=== PATIENT | male | born 1945 | race Caucasian/White ===

== ENCOUNTER 2017-05-06 16:07 | Emergency (ER) | payer MEDICARE, OTHER ==
[~2017-05-06] VITALS: Ht 170.2 cm; Wt 87.5 kg
[~2017-05-06 16:07] MED LIST changes: -Doxycycline Hy100 MG PO
[2017-05-06 17:56] LABS: BASOPHILS ABSOLUTE AUTO 0.04 K/mm3 (0.00-0.23); BASOPHILS PERCENT AUTO 1 % (0-2); EOSINOPHILS ABSOLUTE AUTO 0.04 K/mm3 (0.00-0.68); EOSINOPHILS PERCENT AUTO 1 % (0-6); Hematocrit 38.3 % (37.0-53.0); Hemoglobin 12.5 g/dL (13.5-17.5); IMMATURE GRAN ABSOLUTE AUTO 0.01 K/mm3 (0.00-0.10); IMMATURE GRAN PERCENT AUTO 0 % (0-1); LYMPHOCYTES ABSOLUTE AUTO 0.66 K/mm3 (0.84-5.20); LYMPHOCYTES PERCENT AUTO 11 % (21-46); MONOCYTES PERCENT AUTO 11 % (4-13); Mean Corpuscular HGB 31.2 pg (26.0-34.0); Mean Corpuscular HGB Conc 32.6 g/dL (31.5-36.5); Mean Corpuscular Volume 96 fL (80-100); Mean Platelet Volume 9.7 fL (9.1-12.4); NEUTROPHILS ABSOLUTE AUTO 4.78 K/mm3 (1.96-9.15); NEUTROPHILS PERCENT AUTO 77 % (41-73); Platelet Count 165 K/mm3 (150-400); RDW Coefficient Variation 12.4 % (11.7-14.2); RDW Standard Deviation 43.8 fL (35.1-46.3); Red Blood Cell Count 4.01 M/mm3 (4.30-5.90); White Blood Cell Count 6.23 K/mm3 (4.00-11.30)
[2017-05-06 18:11] LABS: Albumin, Blood 3.6 g/dL (3.4-5.0); Bilirubin, Total 1.2 mg/dL (0.1-1.0); Bun/Creatinine Ratio 19.7 (12.0-20.0); Calcium, Blood 8.5 mg/dL (8.5-10.1); Creatinine, Blood 1.42 mg/dL (0.60-1.20); Globulin, Blood 3.6 g/dL (2.2-4.0); Potassium, Blood 4.2 mmol/L (3.5-5.5); Total Protein, Blood 7.2 g/dL (6.4-8.2)
[2017-05-06] MEDS ORDERED: Doxycycline Hy100 MG PO (18:34)
== END 2017-05-06 19:12 | disposition home or self-care (01) ==
LOC: ER 16:07
PROVIDERS: Emergency Medicine
DX: J18.9 Pneumonia, unspecified organism (principal); M25.562 Pain in left knee; G72.89 Other specified myopathies; J02.9 Acute pharyngitis, unspecified; Z79.899 Other long term (current) drug therapy; Z79.82 Long term (current) use of aspirin; Z87.891 Personal history of nicotine dependence
CPT/HCPCS: 80053; 85025; 85651; 87070; 93005; 93010; 96374; 99283; J1885; J7030

== ENCOUNTER → 2017-05-06 | Outpatient (CLI) | payer MEDICARE, OTHER ==
[~2017-05-06] MED LIST: ASPI81CH PO; ATOR40TA PO; Biotin1 MG PO; CHOL10002 PO; Doxycycline Hy100 MG PO; FAMO20 PO; FISH1000 PO; GABA300 PO; LISI20 PO; MULTIVITAMIN PO; NADO40; NADO40 PO; OXYC5 PO; TRAM50 PO; TRIHYD253A PO
[2017-05-06 16:11] LABS: BASOPHILS ABSOLUTE AUTO 0.05 K/mm3 (0.00-0.23); BASOPHILS PERCENT AUTO 1 % (0-2); EOSINOPHILS ABSOLUTE AUTO 0.07 K/mm3 (0.00-0.68); EOSINOPHILS PERCENT AUTO 1 % (0-6); Hematocrit 37.4 % (37.0-53.0); IMMATURE GRAN ABSOLUTE AUTO 0.01 K/mm3 (0.00-0.10); IMMATURE GRAN PERCENT AUTO 0 % (0-1); LYMPHOCYTES ABSOLUTE AUTO 0.69 K/mm3 (0.84-5.20); LYMPHOCYTES PERCENT AUTO 11 % (21-46); MONOCYTES ABSOLUTE AUTO 0.52 K/mm3 (0.16-1.47); MONOCYTES PERCENT AUTO 9 % (4-13); Mean Corpuscular HGB 30.5 pg (26.0-34.0); Mean Corpuscular HGB Conc 32.1 g/dL (31.5-36.5); Mean Corpuscular Volume 95 fL (80-100); Mean Platelet Volume 10.4 fL (9.1-12.4); NEUTROPHILS ABSOLUTE AUTO 4.79 K/mm3 (1.96-9.15); NEUTROPHILS PERCENT AUTO 78 % (41-73); Platelet Count 174 K/mm3 (150-400); RDW Coefficient Variation 12.4 % (11.7-14.2); RDW Standard Deviation 43.8 fL (35.1-46.3); Red Blood Cell Count 3.93 M/mm3 (4.30-5.90); White Blood Cell Count 6.13 K/mm3 (4.00-11.30)
[2017-05-06 16:41] LABS: Albumin, Blood 3.5 g/dL (3.4-5.0); Bilirubin, Total 1.2 mg/dL (0.1-1.0); Bun/Creatinine Ratio 19.2 (12.0-20.0); Calcium, Blood 8.4 mg/dL (8.5-10.1); Creatinine, Blood 1.46 mg/dL (0.60-1.20); Globulin, Blood 3.4 g/dL (2.2-4.0); Potassium, Blood 4.1 mmol/L (3.5-5.5); Total Protein, Blood 6.9 g/dL (6.4-8.2)
== END ==
LOC: LAB SHORT 15:32
PROVIDERS: Family Medicine
DX: R05 Cough (principal); R53.83 Other fatigue
CPT/HCPCS: 80053; 85025; 85651; 87070

== ENCOUNTER 2018-04-22 09:55 | Day surgery (SDC) | payer MEDICARE, OTHER ==
[~2018-04-22] VITALS: Ht 170.2 cm; Wt 89.2 kg
[~2018-04-22 09:55] MED LIST changes: +Aspirin EC81 MG PO; +CLARITIN10 MG PO; +Doxycycline Hy100 MG PO; +Dyazide 37.5-21 EACH PO; +FISH OIL 1,2001 EAC1 PO; +GABA400; +Mobic15 MG PO; +Multiple Vitam1 EAC1 PO; +Norco 10-325 T1 EACH PO; +TRIA15CR3; +Voltaren100 GM; +ZESTRIL40 MG PO
== END 2018-04-22 12:06 | disposition home or self-care (01) ==
LOC: ORSCSDS 09:55
PROVIDERS: Ophthalmology
PROC: 08RK3JZ Replacement of Left Lens with Synthetic Substitute, Percutaneous Approach (ICD-10-PCS; principal; 2018-04-22 11:30)
DX: H25.12 Age-related nuclear cataract, left eye (principal); I10 Essential (primary) hypertension; E11.9 Type 2 diabetes mellitus without complications; K21.9 Gastro-esophageal reflux disease without esophagitis; Z79.899 Other long term (current) drug therapy; Z79.82 Long term (current) use of aspirin
CPT/HCPCS: 82947; J2001; J2250; J3010; J7120; V2632

== ENCOUNTER 2018-05-06 20:26 | Emergency (ER) | payer MEDICARE, OTHER ==
[~2018-05-06] VITALS: Ht 170.2 cm; Wt 88.9 kg
[2018-05-06] MEDS ORDERED: HYDCOR2.5C PR (21:39)
[2018-05-06] MEDS ORDERED: PRAHYD1AE TOP (21:39)
== END 2018-05-06 22:23 | disposition home or self-care (01) ==
LOC: ER 20:26
DX: K64.4 Residual hemorrhoidal skin tags (principal); Z79.899 Other long term (current) drug therapy; Z79.82 Long term (current) use of aspirin; Z87.891 Personal history of nicotine dependence
CPT/HCPCS: 99283

== ENCOUNTER 2019-01-21 07:06 | Day surgery (SDC) | payer MEDICARE, OTHER ==
[~2019-01-21] VITALS: Ht 167.6 cm; Wt 88.9 kg
[~2019-01-21 07:06] MED LIST changes: +HYDCOR2.5C PR; +PRAHYD1AE TOP
[2019-02-14] MEDS ORDERED: NADO40 PO (12:34)
[2019-02-14] MEDS ORDERED: ZESTRIL40 M1 PO (12:34)
[2019-02-14] MEDS ORDERED: GABA400 PO (12:35)
[2019-02-14] MEDS ORDERED: Norco 10-325 T1 EACH PO (12:35)
[2019-02-14] MEDS ORDERED: Mobic15 MG PO (12:35)
[2019-02-14] MEDS ORDERED: ASCO500 PO (12:36)
[2019-02-14] MEDS ORDERED: VITAMIN D325 MCG PO (12:36)
[2019-02-14] MEDS ORDERED: MULTIPLE VITAM1 EACH PO (12:37)
[2019-02-14] MEDS ORDERED: FISH OIL EC 1,1 EAC1 PO (12:38)
[2019-02-14] MEDS ORDERED: TRIA15CR3 (12:38)
[2019-02-14] MEDS ORDERED: Loratadine10 MG PO (12:38)
[2019-02-14] MEDS ORDERED: Dyazide 37.5-21 EACH PO (12:39)
[2019-02-14] MEDS ORDERED: PROCTOSOL-HC30 GM EXT (12:39)
[2019-02-14] MEDS ORDERED: PRAV20 PO (12:40)
== END 2019-01-21 10:55 | disposition home or self-care (01) ==
LOC: ORSCSDS 07:06
PROVIDERS: Orthopaedic Surgery
PROC: 0SBC4ZZ Excision of Right Knee Joint, Percutaneous Endoscopic Approach (ICD-10-PCS; principal; 2019-01-21 08:30)
PROC: 0S5C4ZZ Destruction of Right Knee Joint, Percutaneous Endoscopic Approach (ICD-10-PCS; principal; 2019-01-21 08:30)
DX: M23.221 Derangement of posterior horn of medial meniscus due to old tear or injury, right knee (principal); M93.961 Osteochondropathy, unspecified, right lower leg; I10 Essential (primary) hypertension; E78.5 Hyperlipidemia, unspecified; E11.42 Type 2 diabetes mellitus with diabetic polyneuropathy; Z79.899 Other long term (current) drug therapy
CPT/HCPCS: 82947; C1713; J0171; J0461; J0690; J1100; J2250; J2405; J2704; J3010; J7120

== ENCOUNTER 2019-02-18 08:33 | Day surgery (SDC) | payer MEDICARE, OTHER ==
[~2019-02-18] VITALS: Ht 170.2 cm; Wt 84.0 kg
[~2019-02-18 08:33] MED LIST changes: +ASCO500 PO; +FISH OIL EC 1,1 EAC1 PO; +GABA400 PO; +Loratadine10 MG PO; +MULTIPLE VITAM1 EACH PO; +PRAV20 PO; +PROCTOSOL-HC30 GM EXT; +VITAMIN D325 MCG PO; +ZESTRIL40 M1 PO
== END 2019-02-18 10:30 | disposition home or self-care (01) ==
LOC: ORSCSDS 08:33
PROVIDERS: Surgery
PROC: 0DBL8ZX Excision of Transverse Colon, Via Natural or Artificial Opening Endoscopic, Diagnostic (ICD-10-PCS; principal; 2019-02-18 09:45)
DX: Z12.11 Encounter for screening for malignant neoplasm of colon (principal); Z86.010 Personal history of colon polyps; D12.3 Benign neoplasm of transverse colon; E11.22 Type 2 diabetes mellitus with diabetic chronic kidney disease; K21.9 Gastro-esophageal reflux disease without esophagitis; K57.30 Diverticulosis of large intestine without perforation or abscess without bleeding; I12.9 Hypertensive chronic kidney disease with stage 1 through stage 4 chronic kidney disease, or unspecified chronic kidney disease; N18.9 Chronic kidney disease, unspecified; E78.5 Hyperlipidemia, unspecified; F41.9 Anxiety disorder, unspecified; Z79.899 Other long term (current) drug therapy
CPT/HCPCS: 82947; 88305; J2704; J7120

== ENCOUNTER → 2019-05-29 | Outpatient (CLI) | payer MEDICARE, OTHER | END | disposition home or self-care (01) | LOC: LAB SHORT 14:35 → LAB EV 14:35 | DX: L03.031 Cellulitis of right toe (principal) | CPT/HCPCS: 87070; 87077; 87186; 87205 ==

== ENCOUNTER 2019-10-04 05:55 | Day surgery (SDC) | payer MEDICARE, OTHER ==
[~2019-10-04] VITALS: Ht 167.6 cm; Wt 94.2 kg
[~2019-10-04 05:55] MED LIST changes: +Pravachol40 MG PO
--- NOTE | 2019-10-04 07:02 | NUR ---
History, Chart, Medications and Allergies reviewed before start of procedure. Lungs clear T/O to Auscultation. Pre-Op teaching done. Pt verbalizes understanding.
--- NOTE | 2019-10-04 14:17 | NUR ---
THERAPY HERE TO WORK WITH PT.
--- NOTE | 2019-10-04 17:11 | NUR ---
SHIFT SUMMARY PT EATING AND DRINKING, VOIDING. PT HAD PROCEDURE TODAY. PT BEEN ASSISTED WITH ADL'S PRN. PT USING CALL LIGHT APPR. PT WORKED WITH THERAPY AND WALKED IN HALLWAY WITH ENTRY LEVEL STAFF ACCOUNTANT THIS AFTERNOON. PT BEEN UP TO CHAIR TODAY.
[2019-10-05 04:19] LABS: BASOPHILS ABSOLUTE AUTO 0.03 K/mm3 (0.00-0.23); BASOPHILS PERCENT AUTO 0 % (0-2); EOSINOPHILS PERCENT AUTO 0 % (0-6); Hematocrit 35.6 % (37.0-53.0); Hemoglobin 11.6 g/dL (13.5-17.5); IMMATURE GRAN ABSOLUTE AUTO 0.05 K/mm3 (0.00-0.10); IMMATURE GRAN PERCENT AUTO 0 % (0-1); LYMPHOCYTES ABSOLUTE AUTO 0.95 K/mm3 (0.84-5.20); LYMPHOCYTES PERCENT AUTO 7 % (21-46); MONOCYTES PERCENT AUTO 5 % (4-13); Mean Corpuscular HGB 32.5 pg (26.0-34.0); Mean Corpuscular HGB Conc 32.6 g/dL (31.5-36.5); Mean Corpuscular Volume 100 fL (80-100); Mean Platelet Volume 10.2 fL (9.1-12.4); NEUTROPHILS ABSOLUTE AUTO 12.26 K/mm3 (1.96-9.15); NEUTROPHILS PERCENT AUTO 88 % (41-73); Platelet Count 241 K/mm3 (150-400); RDW Coefficient Variation 12.1 % (11.7-14.2); RDW Standard Deviation 45.1 fL (35.1-46.3); Red Blood Cell Count 3.57 M/mm3 (4.30-5.90); White Blood Cell Count 13.99 K/mm3 (4.00-11.30)
[2019-10-05 04:39] LABS: Bun/Creatinine Ratio 24.8 (12.0-20.0); Calcium, Blood 8.2 mg/dL (8.5-10.1); Creatinine, Blood 1.45 mg/dL (0.60-1.20)
--- NOTE | 2019-10-05 05:05 | NUR ---
SHIFT SUMMARY PT A/O X4. SBA TO BATHROOM. PT TOLERATING PO INTAKE AND VOIDING. PT AMBULATED MULT TIMES DURING SHIFT. PT REPORTS PAIN IS MANAGED WELL. SEE EMAR. POLAR PACK IN PLACE DURING THE SHIFT. NO ACUTE CHANGES.
[2019-10-05] MEDS ORDERED: ASPI81CH PO (09:32)
[2019-10-05] MEDS ORDERED: Percocet 5-3251 EACH PO (09:33)
--- NOTE | 2019-10-05 10:10 | NUR ---
DISCHARGE CLEARED THERAPY, PAIN TOLERABLE, EATING, DRINKING, & VOIDING WELL. SCRIPTS, POLAR PACK, & DRSGS GIVEN. ESCORTED OUT VIA W/C.
== END 2019-10-05 10:18 | disposition home or self-care (01) ==
LOC: ORSCMMR 05:55 → ORD 07:30 → ORSCMMR 07:30 → ORD 08:15 → SURS 11:04 → ORSCMMR 11:04 → SURS 10-05 10:18
PROVIDERS: Orthopaedic Surgery
PROC: 0SRC0JA Replacement of Right Knee Joint with Synthetic Substitute, Uncemented, Open Approach (ICD-10-PCS; principal; 2019-10-04 07:30)
PROC: 8E0YXBZ Computer Assisted Procedure of Lower Extremity (ICD-10-PCS; principal; 2019-10-04 07:30)
DX: M17.11 Unilateral primary osteoarthritis, right knee (principal); I10 Essential (primary) hypertension; E78.5 Hyperlipidemia, unspecified; E11.9 Type 2 diabetes mellitus without complications; Z87.891 Personal history of nicotine dependence; K21.9 Gastro-esophageal reflux disease without esophagitis; N18.9 Chronic kidney disease, unspecified; Z79.899 Other long term (current) drug therapy; E66.9 Obesity, unspecified; Z68.33 Body mass index [BMI] 33.0-33.9, adult
CPT/HCPCS: 36415; 73560-RT; 80048; 82947; 85025; 88300; 97110; 97116; 97162; C1776; J0171; J0360; J0690; J0735; J1100; J1885; J2250; J2370; J2405; J2704; J2795; J3010; J7120

== ENCOUNTER → 2019-10-12 | Outpatient (CLI) | payer MEDICARE, OTHER ==
[~2019-10-12] MED LIST changes: +Percocet 5-3251 EACH PO
[2019-10-12 15:51] LABS: BASOPHILS ABSOLUTE AUTO 0.07 K/mm3 (0.00-0.23); BASOPHILS PERCENT AUTO 1 % (0-2); EOSINOPHILS PERCENT AUTO 5 % (0-6); Hematocrit 29.3 % (37.0-53.0); Hemoglobin 9.7 g/dL (13.5-17.5); IMMATURE GRAN ABSOLUTE AUTO 0.14 K/mm3 (0.00-0.10); IMMATURE GRAN PERCENT AUTO 1 % (0-1); LYMPHOCYTES ABSOLUTE AUTO 1.73 K/mm3 (0.84-5.20); LYMPHOCYTES PERCENT AUTO 16 % (21-46); MONOCYTES ABSOLUTE AUTO 0.84 K/mm3 (0.16-1.47); MONOCYTES PERCENT AUTO 8 % (4-13); Mean Corpuscular HGB 33.1 pg (26.0-34.0); Mean Corpuscular HGB Conc 33.1 g/dL (31.5-36.5); Mean Corpuscular Volume 100 fL (80-100); Mean Platelet Volume 9.2 fL (9.1-12.4); NEUTROPHILS ABSOLUTE AUTO 7.77 K/mm3 (1.96-9.15); NEUTROPHILS PERCENT AUTO 70 % (41-73); Platelet Count 339 K/mm3 (150-400); RDW Coefficient Variation 12.7 % (11.7-14.2); RDW Standard Deviation 45.7 fL (35.1-46.3); Red Blood Cell Count 2.93 M/mm3 (4.30-5.90); White Blood Cell Count 11.05 K/mm3 (4.00-11.30)
[2019-10-12 16:03] LABS: Alanine Aminotransfer (ALT/SGP 35 U/L (12-78); Albumin, Blood 3.1 g/dL (3.4-5.0); Albumin/Globulin Ratio 0.8 (0.8-1.8); Alk Phos 122 U/L (40-126); Anion Gap 7 mmol/L (6-16); Aspartate Aminotrans (AST/SGOT 25 U/L (12-37); Bilirubin, Total 0.7 mg/dL (0.1-1.0); Blood Urea Nitrogen 37 mg/dL (8-24); Bun/Creatinine Ratio 35.2 (12.0-20.0); CO2, Blood 30 mmol/L (21-32); Calcium, Blood 8.7 mg/dL (8.5-10.1); Chloride, Blood 105 mmol/L (98-108); Creatinine, Blood 1.05 mg/dL (0.60-1.20); Globulin, Blood 3.8 g/dL (2.2-4.0); Glomerular Filtration Rate >60 (60-); Glucose, Blood 105 mg/dL (70-99); Potassium, Blood 3.7 mmol/L (3.5-5.5); Sodium, Blood 142 mmol/L (136-145); Total Protein, Blood 6.9 g/dL (6.4-8.2)
== END | disposition home or self-care (01) ==
LOC: LAB SHORT 15:48 → LAB EV 15:48
PROVIDERS: Physician Assistant Medical
DX: K92.1 Melena (principal)
CPT/HCPCS: 80053; 85025

== ENCOUNTER 2019-12-03 23:04 | Emergency (ER) | payer MEDICARE, OTHER ==
[~2019-12-03] VITALS: Ht 167.6 cm; Wt 88.0 kg
[~2019-12-03 23:04] MED LIST changes: +DYAZIDE 37.5-21 EACH PO; +OMEP20ER PO
== END 2019-12-04 00:10 | disposition home or self-care (01) ==
LOC: ER 23:04
DX: S51.811A Laceration without foreign body of right forearm, initial encounter (principal); Z88.8 Allergy status to other drugs, medicaments and biological substances; Z79.899 Other long term (current) drug therapy; Z23 Encounter for immunization; W26.8XXA Contact with other sharp object(s), not elsewhere classified, initial encounter
CPT/HCPCS: 90471; 90714; 99282-25

== ENCOUNTER 2022-04-08 06:32 | Day surgery (SDC) | payer MEDICARE ==
[~2022-04-08] VITALS: Ht 170.2 cm; Wt 99.9 kg
[~2022-04-08 06:32] MED LIST changes: +FURO40 PO; +IRBE150 PO
--- NOTE | 2022-04-08 07:34 | NUR ---
History, Chart, Medications and Allergies reviewed before start of procedure. Patient confirms NPO status and agrees with scheduled surgery. Pre-Op teaching done. Pt verbalizes understanding.
--- NOTE | 2022-04-08 18:49 | NUR ---
SHIFT SUMMARY PT A&OX4, VSS/RA, ARIELLE PO, PAIN TREATED WITH OXY, TYLENOL AND TORADOL, PT FINALLY REP PAIN 05/16. 2 PP MAX ASSIST STAND PIVOT TRANSFER BED/CHAIR. BLADDER SCAN [id number], AWAITING POSTOP VOID. S/P L TKA, AQUACEL/SEFERINO WRAP CDI, POLAR SANIYA ON/SCDS/TEDS ON. REPORT PROVIDED TO TIO ALVARADO.
[2022-04-09 04:19] LABS: BASOPHILS ABSOLUTE AUTO 0.01 K/mm3 (0.00-0.23); BASOPHILS PERCENT AUTO 0 % (0-2); EOSINOPHILS ABSOLUTE AUTO 0.01 K/mm3 (0.00-0.68); EOSINOPHILS PERCENT AUTO 0 % (0-6); Hematocrit 28.2 % (37.0-53.0); Hemoglobin 9.5 g/dL (13.5-17.5); IMMATURE GRAN ABSOLUTE AUTO 0.06 K/mm3 (0.00-0.10); IMMATURE GRAN PERCENT AUTO 0 % (0-1); LYMPHOCYTES ABSOLUTE AUTO 1.01 K/mm3 (0.84-5.20); LYMPHOCYTES PERCENT AUTO 7 % (21-46); MONOCYTES ABSOLUTE AUTO 0.85 K/mm3 (0.16-1.47); MONOCYTES PERCENT AUTO 6 % (4-13); Mean Corpuscular HGB 32.4 pg (26.0-34.0); Mean Corpuscular HGB Conc 33.7 g/dL (31.5-36.5); Mean Corpuscular Volume 96 fL (80-100); Mean Platelet Volume 10.1 fL (9.1-12.4); NEUTROPHILS ABSOLUTE AUTO 12.04 K/mm3 (1.96-9.15); NEUTROPHILS PERCENT AUTO 86 % (41-73); Platelet Count 245 K/mm3 (150-400); RDW Coefficient Variation 12.5 % (11.7-14.2); RDW Standard Deviation 43.7 fL (35.1-46.3); Red Blood Cell Count 2.93 M/mm3 (4.30-5.90); White Blood Cell Count 13.98 K/mm3 (4.00-11.30)
--- NOTE | 2022-04-09 04:20 | NUR ---
SUMMARY POD1 L TKA. AQUACEL W/ SEFERINO WRAP IN PLACE, C/D/I. POLAR PACK TO KNEE. SCD'S AND LYN HOSE IN PLACE. PATIENT HAS VOIDED X1 ABOUT 250ML IN URINAL. 2 ASSIST TO SIT AT EOB. TREMORS IN ARMS AND UPPER BODY WHILE MOVING. PATIENT STATES, "THIS HAS BEEN GOING ON FOR A YEAR NOW". IV SALINE LOCKED, PATIENT TOLERATES PO INTAKE, DENIES N/V. PATIENT REPORTS SOME N/T IN FEET, THIS IS BASELINE PER PATIENT. VSS, CALLS APPROPRIATELY.
[2022-04-09 04:47] LABS: Bun/Creatinine Ratio 22.9 (12.0-20.0); Calcium, Blood 8.3 mg/dL (8.5-10.1); Creatinine, Blood 2.01 mg/dL (0.60-1.20); Potassium, Blood 4.8 mmol/L (3.5-5.5)
--- NOTE | 2022-04-09 18:12 | NUR ---
SHIFT SUMMARY PT POD #1 FOR L TOTAL KNEE. PT IS A 2 PERSON MAX ASSIST AND DID NOT CLEAR PHYSICAL THERAPY IN ORDER TO GO HOME TODAY. FAMILY AND 'S CAREGIVER HAVE BEEN MADE AWARE. PT TO WORK WITH PHYSICAL THERAPY AGAIN TOMORROW. TREATED FOR PAIN PER EMR. VSS.
--- NOTE | 2022-04-10 04:30 | NUR ---
SUMMARY POD 2 L TKA. A&OX4. PATIENT IS A 2 ASSIST TO TRANSFER, GB, FWW. PATIENT HAS MODERATE TREMORING IN LEGS AND HANDS. WHILE STANDING AT EDGE OF BED WITH 2 STAFF MEMBERS, PATIENT HAD HIS L LEG GIVE WAY AND HE SAT ABRUPTLY ON THE BED. PATIENT DENIES N/T T/O. IV ON R FORARM INFILITRATED THIS RN REMOVED IT BEFORE BEING ABLE TO GIVE SCHEDULED TORADOL. PATIENT MEDICATED W/ TYLENOL AND DENIES NEED FOR MORE PAIN MEDICATION. PATIENT VOIDING WELL, PASSING GAS, TOLERATES REG DIET. PLAN TO WORK WITH THERAPY IN AM. VSS, CALL LIGHT IN REACH.
--- NOTE | 2022-04-11 04:38 | NUR ---
SHIFT SUMMARY: PODx3 L TKA. SEFERINO WRAP AND AQUACEL REMAIN C/D/I AT THIS TIME. TOLERATING PO FLUIDS AND VOIDING. PT REMAINS SLIGHTLY WEAK AND UNSTEADY WITH AMB. X2 ASSIST USING FWW/GAIT BELT. PT C/O VERY MINIMAL PAIN THAT WAS WELL MANAGED WITH SCHEDULED TYLENOL. CALLS APPROPRIATELY. RESTING AT THIS TIME WITH CALL LIGHT IN REACH. PLANS TO DC TO SNF POTENTIALLY TODAY. WILL GIVE REPORT TO ONCOMING NURSE.
[2022-04-11 12:17] LABS: SARS-Cov-2 (COVID-19) PCR, MMC NEGATIVE (NEGATIVE)
--- NOTE | 2022-04-11 13:13 | NUR ---
lawrence called to forest at [facility]
== END 2022-04-11 14:10 ==
LOC: ORSCMMR 06:32 → SURS 06:32 → ORSCMMR 06:34 → ORD 08:15 → SURS 11:50 → ORSCMMR 04-11 14:10
PROVIDERS: Orthopaedic Surgery; Physician Assistant Surgical
PROC: 0SRD069 Replacement of Left Knee Joint with Oxidized Zirconium on Polyethylene Synthetic Substitute, Cemented, Open Approach (ICD-10-PCS; principal; 2022-04-08 08:15)
DX: M17.12 Unilateral primary osteoarthritis, left knee (principal); I10 Essential (primary) hypertension; E11.9 Type 2 diabetes mellitus without complications; Z87.891 Personal history of nicotine dependence; Z20.822 Contact with and (suspected) exposure to COVID-19
CPT/HCPCS: 36415; 73560-LT; 80048; 82947; 85025; 97110; 97116; 97161; 97530; A9270; C1776; J0171; J0690; J0735; J1100; J1885; J2250; J2370; J2405; J2704; J2795; J3010; J7120; U0004

== ENCOUNTER → 2022-08-04 | Outpatient (CLI) | payer MEDICARE ==
[2022-08-08 13:09] LABS: M-SPIKE, % Not Observed % (Not Observed); PROTEIN,TOTAL,URINE 11.4 mg/dL (Not Estab.)
== END | disposition home or self-care (01) ==
LOC: LAB SHORT 14:40 → LAB 14:40
PROVIDERS: Internal Medicine
DX: N18.32 Chronic kidney disease, stage 3b (principal); E83.41 Hypermagnesemia; R79.89 Other specified abnormal findings of blood chemistry
CPT/HCPCS: 81050; 84166; 86335

== ENCOUNTER → 2023-09-21 | Outpatient (CLI) | payer MEDICARE ==
[2023-09-21 09:02] LABS: BASOPHILS ABSOLUTE AUTO 0.08 K/mm3 (0.00-0.23); BASOPHILS PERCENT AUTO 1 % (0-2); EOSINOPHILS ABSOLUTE AUTO 0.47 K/mm3 (0.00-0.68); EOSINOPHILS PERCENT AUTO 4 % (0-6); Hematocrit 38.9 % (37.0-53.0); Hemoglobin 12.9 g/dL (13.5-17.5); IMMATURE GRAN ABSOLUTE AUTO 0.03 K/mm3 (0.00-0.10); IMMATURE GRAN PERCENT AUTO 0 % (0-1); LYMPHOCYTES ABSOLUTE AUTO 0.94 K/mm3 (0.84-5.20); LYMPHOCYTES PERCENT AUTO 8 % (21-46); MONOCYTES ABSOLUTE AUTO 0.67 K/mm3 (0.16-1.47); MONOCYTES PERCENT AUTO 6 % (4-13); Mean Corpuscular HGB 31.9 pg (26.0-34.0); Mean Corpuscular HGB Conc 33.2 g/dL (31.5-36.5); Mean Corpuscular Volume 96 fL (80-100); Mean Platelet Volume 9.4 fL (9.1-12.4); NEUTROPHILS ABSOLUTE AUTO 9.06 K/mm3 (1.96-9.15); NEUTROPHILS PERCENT AUTO 80 % (41-73); Platelet Count 228 K/mm3 (150-400); RDW Coefficient Variation 12.2 % (11.7-14.2); RDW Standard Deviation 42.8 fL (35.1-46.3); Red Blood Cell Count 4.05 M/mm3 (4.30-5.90); White Blood Cell Count 11.25 K/mm3 (4.00-11.30)
[2023-09-21 09:14] LABS: Albumin/Globulin Ratio 0.8 (0.8-1.8); Bun/Creatinine Ratio 7.9 (12.0-20.0); Calcium, Blood 8.7 mg/dL (8.5-10.1); Creatinine, Blood 1.39 mg/dL (0.60-1.20); Globulin, Blood 3.7 g/dL (2.2-4.0); Potassium, Blood 3.7 mmol/L (3.5-5.5); Total Protein, Blood 6.7 g/dL (6.4-8.2)
== END | disposition home or self-care (01) ==
LOC: LAB SHORT 08:58 → LAB 08:58
PROVIDERS: Physician Assistant
DX: R07.9 Chest pain, unspecified (principal)
CPT/HCPCS: 80053; 83690; 84484; 85025

== ENCOUNTER → 2024-12-29 | Outpatient (CLI) | payer MEDICARE ==
[2024-12-30 14:09] LABS: Campylobacter Sp Not Detected (NOT DETECT); E. Coli O157 Not Detected (NOT DETECT); Enteroaggregative E. coli-EAEC Not Detected (NOT DETECT); Enteropathogenic E. coli-EPEC Not Detected (NOT DETECT); Enterotoxigenic E. coli-ETEC Detected (NOT DETECT); Salmonella Sp Not Detected (NOT DETECT); Shiga Toxin-prod E. coli-STEC Not Detected (NOT DETECT); Vibrio Sp Not Detected (NOT DETECT)
[2024-12-30 14:10] LABS: Shigella/Enteroin E. coli-EIEC Not Detected (NOT DETECT)
== END ==
LOC: LAB 17:45 → LAB SHORT 17:45 → LAB FUT 12-28 08:55
PROVIDERS: Internal Medicine
DX: R19.7 Diarrhea, unspecified (principal)
CPT/HCPCS: 87507